=== PATIENT | male | born 1945 | race Caucasian/White ===

== ENCOUNTER → 2019-08-11 | Outpatient (CLI) | payer MEDICARE, OTHER ==
[~2019-08-11] MED LIST: ASPIRIN81 MG PO; CHLORTHALIDONE25 MG; CO Q-10400 MG PO; GLIPIZIDE10 MG PO; LOPRESSOR25 MG PO; LORATADINE10 MG PO; LOVAZA1 GM; LOVAZA1 GM PO; LYRICA75 MG; POTASSIUM CHLO20 ME1; SERTRALINE HCL50 MG PO; TYLENOL WITH C1 EACH PO; VICTOZA 2-0.6 MG/0.1; XARELTO10 MG PO; ZESTRIL10 MG PO; ZETIA10 MG PO; ZOLPIDEM TARTRA10 MG PO
--- NOTE | 2019-08-11 12:57 | Diagnostic Imaging Report ---
EXAMINATION: FOOT LEFT COMPLETE, FOOT RIGHT COMPLETE INDICATION: Inflammatory arthritis COMPARISON: None FINDINGS: No acute fracture or dislocation of either foot. The soft tissues appear unremarkable. No evidence of erosive arthritis. No substantial degenerative change. Mild scattered atherosclerotic arterial calcifications. Plantar calcaneal spurs left greater than right. IMPRESSION: No acute osseous injury. No evidence of inflammatory arthritis of the feet. Signed by: Jonathon Barrett MD on 08/11/2019 12:54 PM
--- NOTE | 2019-08-11 13:38 | Diagnostic Imaging Report ---
EXAMINATION: SI JOINTS 3 VIEWS OR LESS, SP LUMBAR AP LATERAL 2-3VWS INDICATION: Inflammatory arthritis COMPARISON: None FINDINGS: No acute fracture or dislocation. Minimal anterolisthesis at L4-5. Alignment is otherwise anatomic. No radiographic evidence of inflammatory arthritis at the SI joints. No substantial degenerative change. Atherosclerotic arterial calcifications. Status post cholecystectomy. IMPRESSION: No acute osseous injury. No radiographic evidence of inflammatory arthritis at the sacroiliac joints. Minimal anterolisthesis at L4-5. Signed by: Jonathon Barrett MD on 08/11/2019 1:34 PM
--- NOTE | 2019-08-11 15:51 | Diagnostic Imaging Report ---
EXAMINATION: HAND THREE VIEWS BILATERAL, WRIST COMPLETE BILATERAL INDICATION: Inflammatory arthritis COMPARISON: None FINDINGS: Hands: No acute fracture or dislocation. Alignment is anatomic. Mild scattered degenerative change. No specific findings of inflammatory arthritis. Mild scattered atherosclerotic calcifications. Wrists: No acute osseous injury. No specific findings of erosive or inflammatory arthritis. IMPRESSION: No specific findings of erosive or inflammatory arthritis. No acute osseous injury. Signed by: Jonathon Barrett MD on 08/11/2019 3:47 PM
== END ==
LOC: RAD 09:07
PROVIDERS: ATTEND Allergy & Immunology Allergy
DX: M79.672 Pain in left foot (principal); M79.671 Pain in right foot; M79.642 Pain in left hand; M79.641 Pain in right hand; M25.532 Pain in left wrist; M25.531 Pain in right wrist; M54.5 Low back pain; M53.3 Sacrococcygeal disorders, not elsewhere classified
CPT/HCPCS: 72100; 72200

== ENCOUNTER 2020-02-21 15:13 | Emergency (ER) | payer MEDICARE, OTHER ==
[~2020-02-21] VITALS: Ht 177.8 cm; Wt 104.3 kg
== END 2020-02-21 16:52 | disposition home or self-care (01) ==
LOC: ER 15:25
DX: U07.1 COVID-19 (principal); R50.9 Fever, unspecified; I10 Essential (primary) hypertension; E11.9 Type 2 diabetes mellitus without complications; E78.00 Pure hypercholesterolemia, unspecified; F43.10 Post-traumatic stress disorder, unspecified; Z96.653 Presence of artificial knee joint, bilateral; E66.9 Obesity, unspecified
CPT/HCPCS: 71045; 93005; 99283

== ENCOUNTER 2021-06-26 10:25 | Emergency (ER) | payer MEDICARE, OTHER ==
[~2021-06-26] VITALS: Ht 177.8 cm; Wt 104.3 kg
[2021-06-26] MEDS ORDERED: TETANUS/DIPHTHERIA TOX ADULT 0.5 ML SYR IM ONE (11:00)
== END 2021-06-26 11:21 | disposition home or self-care (01) ==
LOC: ER 10:45
DX: S41.112A Laceration without foreign body of left upper arm, initial encounter (principal); Z23 Encounter for immunization; I10 Essential (primary) hypertension; E11.9 Type 2 diabetes mellitus without complications; E78.00 Pure hypercholesterolemia, unspecified; F43.10 Post-traumatic stress disorder, unspecified; W26.8XXA Contact with other sharp object(s), not elsewhere classified, initial encounter; Z79.02 Long term (current) use of antithrombotics/antiplatelets; Z79.82 Long term (current) use of aspirin; Z79.84 Long term (current) use of oral hypoglycemic drugs; Z79.899 Other long term (current) drug therapy
CPT/HCPCS: 90471; 90714; 99283